=== PATIENT | male | born 1980 | race Hispanic/Latino ===

== ENCOUNTER 2024-04-07 15:33 | Outpatient (CLI) | payer OTHER | END 2024-04-07 15:34 | disposition home or self-care (01) | LOC: CSHMRI 15:33 | PROVIDERS: ATTEND Family Medicine | DX: M86.271 Subacute osteomyelitis, right ankle and foot (principal); S90.934A Unspecified superficial injury of right lesser toe(s), initial encounter; M19.071 Primary osteoarthritis, right ankle and foot ==